=== PATIENT | male | born 1980 | race Caucasian/White ===

== ENCOUNTER 2016-09-18 01:23 | Inpatient (IN) | payer SELFPAY ==
[2016-09-18] VITALS (7 sets, daily range): BP systolic 100–157; BP diastolic 56–80; PULSE 78–128; RESP 16–20; TEMP 97.6–99; O2SAT 93–99
[2016-09-18] MEDS ORDERED: DIPHTH/TETANUS/ACEL PERTUSSIS (BOOSTER) 0.5 ML VIAL/PFS IM ONE ×3 (01:28→02:15)
[2016-09-18] MEDS ORDERED: ceFAZolin 2 GM PREMIX 50 ML ONE (01:28)
[2016-09-18 01:46] LABS: I-STAT POTASSIUM 3.4 MMOL/L (3.5-4.9)
[2016-09-18] MEDS ORDERED: IOHEXOL 350 MG/ML 10 ML VIAL (for RAD DIAG) IV ONE (01:48)
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
[2016-09-18 01:53] LABS: AUTOMATED NEUTROPHIL # 8.6 TH/MM3 (1.8-7.7); BASOPHIL % 0.3 % (0.0-2.0); EOSINOPHIL % 0.3 % (0.0-4.0); HEMATOCRIT 47.9 % (39.0-51.0); HEMO FLAGS DIFF FINAL; LYMPH % 24.1 % (9.0-44.0); LYMPHOCYTE # 3.2 TH/MM3 (1.0-4.8); MEAN CORPUSCULAR HEMOGLOBIN 31.2 PG (27.0-34.0); MEAN CORPUSCULAR HGB CONC 33.9 % (32.0-36.0); MONO % 9.4 % (0.0-8.0); NEUT % 65.9 % (16.0-70.0); PLATELET COUNT 292 TH/MM3 (150-450); RED BLOOD COUNT 5.21 MIL/MM3 (4.50-5.90); RED CELL DISTRIBUTION WIDTH 12.7 % (11.6-17.2); WHITE BLOOD COUNT 13.1 TH/MM3 (4.0-11.0)
[2016-09-18 01:57] LABS: APTT (PATIENT) 26.6 SEC (24.3-30.1); PROTHROMBIN TIME - PATIENT 10.8 SEC (9.8-11.6)
[2016-09-18] MEDS ORDERED: ENALAPRILAT 1.25 MG/ML VIAL IV PRN (02:00)
[2016-09-18] MEDS ORDERED: SODIUM CHLORIDE 0.9% FLUSH 10 ML FLUSH IV FLUSH PRN (02:00)
[2016-09-18] MEDS ORDERED: ACETAMINOPHEN/HYDROcodone 325 MG/5 MG TAB PO PRN (02:00)
[2016-09-18] MEDS ORDERED: MAGNESIUM HYDROXIDE SUSP 30 ML CUP PO PRN (02:00)
[2016-09-18] MEDS ORDERED: ONDANSETRON HCL 4 MG/2 ML VIAL IV PRN (02:00)
[2016-09-18] MEDS ORDERED: ceFAZolin 2 GM PREMIX 50 ML IV STA (02:01)
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
[2016-09-18] MEDS ORDERED: ceFAZolin 2 GM PREMIX 50 ML IV ONE (02:15)
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
[2016-09-18] MEDS: SODIUM CHLOR 0.9% 1000 ML INJ 1,000 ML IV SCH ×3 (03:01→21:26)
[2016-09-18] MEDS: PANTOPRAZOLE SODIUM 40 MG VIAL IVP SCH (03:01)
[2016-09-18] MEDS: MORPHINE SULFATE 4 MG/ML INJ IV PRN ×4 (03:02→21:28)
[2016-09-18] MEDS: MULTIVITAMIN INJ 10 ML, THIAMINE INJ 100 MG, FOLIC ACID INJ 1 MG in SODIUM CHLORID 0.9%... IV SCH (05:17)
[2016-09-18] MEDS ORDERED: POTASSIUM CHLORIDE 20 MEQ CONTROLLED RELEASE TAB PO ONE (07:45)
[2016-09-18] MEDS ORDERED: LIDOCAINE 1%/EPINEPHrine 1:100,000 SOLN 20 ML VIAL INFIL ONE (08:30)
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
[2016-09-18] MEDS: DOCUSATE SODIUM 100 MG CAP PO SCH ×2 (10:15→21:26)
[2016-09-18] MEDS: ceFAZolin 2 GM PREMIX 50 ML IV SCH ×2 (10:25→17:15)
[2016-09-18] MEDS ORDERED: MILKSUS PO (11:58)
[2016-09-18] MEDS ORDERED: DOCU1CAP39 PO (11:58)
[2016-09-18] MEDS: CYCLOBENZAPRINE HCL 10 MG TAB PO SCH ×2 (13:32→21:26)
[2016-09-18] MEDS: ACETAMINOPHEN/HYDROcodone 325 MG/5 MG TAB PO PRN ×2 (13:32→19:51)
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
[2016-09-19] VITALS: BP 138/82; PULSE 94; RESP 17; TEMP 97.8; O2SAT 96
[2016-09-19] MEDS: ACETAMINOPHEN/HYDROcodone 325 MG/5 MG TAB PO PRN ×6 (00:02→22:16)
[2016-09-19] MEDS: ceFAZolin 2 GM PREMIX 50 ML IV SCH ×3 (04:02→17:36)
[2016-09-19] MEDS: PANTOPRAZOLE SODIUM 40 MG VIAL IVP SCH (04:02)
[2016-09-19] MEDS: CYCLOBENZAPRINE HCL 10 MG TAB PO SCH ×3 (04:02→20:25)
[2016-09-19] MEDS: MULTIVITAMIN INJ 10 ML, THIAMINE INJ 100 MG, FOLIC ACID INJ 1 MG in SODIUM CHLORID 0.9%... IV SCH (04:03)
[2016-09-19] MEDS: SODIUM CHLOR 0.9% 1000 ML INJ 1,000 ML IV SCH ×2 (05:06→17:56)
[2016-09-19] MEDS: MORPHINE SULFATE 4 MG/ML INJ IV PRN ×4 (05:56→20:27)
[2016-09-19 07:22] LABS: BASOPHIL # 0.1 TH/MM3 (0-0.2); BASOPHIL % 0.5 % (0.0-2.0); EOSINOPHIL # 0.1 TH/MM3 (0-0.4); EOSINOPHIL % 0.4 % (0.0-4.0); HEMATOCRIT 42.6 % (39.0-51.0); HEMO FLAGS DIFF FINAL; LYMPH % 16.4 % (9.0-44.0); LYMPHOCYTE # 2.1 TH/MM3 (1.0-4.8); MEAN CELL VOLUME 93.8 FL (80.0-100.0); MEAN CORPUSCULAR HEMOGLOBIN 31.2 PG (27.0-34.0); MEAN CORPUSCULAR HGB CONC 33.2 % (32.0-36.0); MONO % 11.7 % (0.0-8.0); PLATELET COUNT 199 TH/MM3 (150-450); RED BLOOD COUNT 4.54 MIL/MM3 (4.50-5.90); RED CELL DISTRIBUTION WIDTH 12.6 % (11.6-17.2); WHITE BLOOD COUNT 12.6 TH/MM3 (4.0-11.0)
[2016-09-19 07:24] VITALS: BP 125/81; PULSE 85; RESP 17; TEMP 97; O2SAT 98
[2016-09-19 07:40] LABS: ALT (GPT) 18 U/L (12-78); ANION GAP 6 MEQ/L (5-15); AST (GOT) 16 U/L (15-37); BICARBONATE 25.2 MEQ/L (21.0-32.0); BLOOD UREA NITROGEN 9 MG/DL (7-18); CHLORIDE 106 MEQ/L (98-107); GLOMERULAR FILTRATION RATE 133 ML/MIN (>89); POTASSIUM 3.9 MEQ/L (3.5-5.1); SODIUM (NA) 137 MEQ/L (136-145)
[2016-09-19 07:43] LABS: ALKALINE PHOSPHATASE 62 U/L (45-117); TOTAL BILIRUBIN ADULT 1.1 MG/DL (0.2-1.0)
[2016-09-19] MEDS: DOCUSATE SODIUM 100 MG CAP PO SCH ×2 (08:40→20:27)
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
[2016-09-19 11:29] VITALS: BP 128/83; PULSE 96; RESP 17; TEMP 95.2; O2SAT 98
[2016-09-19] MEDS: BACITRACIN TOP OINT 15 GM TUBE TOPICAL SCH ×2 (12:00→20:27)
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
[2016-09-19] MEDS: KETOROLAC TROMETHAMINE 60 MG/2 ML (IM) VIAL IM SCH ×2 (12:56→20:27)
[2016-09-19] MEDS: NICOTINE 14 MG/24 HR PATCH T-DERMAL SCH (13:01)
[2016-09-19 15:26] VITALS: BP 143/86; PULSE 95; RESP 17; TEMP 95.3; O2SAT 97
[2016-09-19 20:00] VITALS: BP 128/72; PULSE 83; RESP 17; TEMP 98.1; O2SAT 98
[2016-09-20] VITALS: BP 141/88; PULSE 98; RESP 19; TEMP 98.2; O2SAT 98
[2016-09-20] MEDS: ceFAZolin 2 GM PREMIX 50 ML IV SCH ×2 (00:46→09:41)
[2016-09-20] MEDS: MORPHINE SULFATE 4 MG/ML INJ IV PRN ×2 (00:46→05:03)
[2016-09-20] MEDS: PANTOPRAZOLE SODIUM 40 MG VIAL IVP SCH (03:15)
[2016-09-20] MEDS: ACETAMINOPHEN/HYDROcodone 325 MG/5 MG TAB PO PRN ×2 (03:15→09:41)
[2016-09-20] MEDS: MULTIVITAMIN INJ 10 ML, THIAMINE INJ 100 MG, FOLIC ACID INJ 1 MG in SODIUM CHLORID 0.9%... IV SCH (03:15)
[2016-09-20] MEDS: SODIUM CHLOR 0.9% 1000 ML INJ 1,000 ML IV SCH (03:24)
[2016-09-20] MEDS: CYCLOBENZAPRINE HCL 10 MG TAB PO SCH (05:02)
[2016-09-20] MEDS: KETOROLAC TROMETHAMINE 60 MG/2 ML (IM) VIAL IM SCH (05:02)
[2016-09-20 08:00] VITALS: BP 117/62; PULSE 100; RESP 18; TEMP 97.1; O2SAT 97
[2016-09-20] MEDS ORDERED: REMOVE OLD PATCH T-DERMAL SCH (09:00)
[2016-09-20] MEDS: BACITRACIN TOP OINT 15 GM TUBE TOPICAL SCH (09:00)
[2016-09-20] MEDS: NICOTINE 14 MG/24 HR PATCH T-DERMAL SCH (09:41)
[2016-09-20] MEDS: DOCUSATE SODIUM 100 MG CAP PO SCH (09:41)
[2016-09-20 10:41] VITALS: RESP 18
[2016-09-20] MEDS ORDERED: HYDR-3516 PO (10:55)
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
== END 2016-09-20 12:39 | disposition home or self-care (01) | DRG 566 ==
LOC: NEPI 01:23 → NEDA 02:04 → EDBD 02:04 → NEDA 03:30 → NEPFCDU 03:40 → N06A 20:07
PROVIDERS: ADMIT Surgery; ATTEND Surgery
DX: S42.112A Displaced fracture of body of scapula, left shoulder, initial encounter for closed fracture (principal); S01.112A Laceration without foreign body of left eyelid and periocular area, initial encounter; S01.81XA Laceration without foreign body of other part of head, initial encounter; F10.129 Alcohol abuse with intoxication, unspecified; V29.9XXA Motorcycle rider (driver) (passenger) injured in unspecified traffic accident, initial encounter; Y92.410 Unspecified street and highway as the place of occurrence of the external cause; Y90.8 Blood alcohol level of 240 mg/100 ml or more
CPT/HCPCS: 70450; 70486; 71010; 71260; 72125; 72170; 73200; 74177; 80053; 80307; 82435; 82565; 82947; 84132; 84295; 84520; 85025; 85610; 85730; 86850; 86900; 86901; 90471; 90715; 96374; 99291; C9113; G0390; J0690; J1885; J2270; J3411; J7030; J7040; Q9967